=== PATIENT | female | born 1990 | race Caucasian/White ===

== ENCOUNTER 2024-02-15 15:42 | Outpatient (CLI) | payer MEDICAID, SELFPAY | END 2024-02-15 15:43 | disposition home or self-care (01) | PROVIDERS: PCP Family Medicine; Visit Provider Family Medicine | DX: Z01.84 Encounter for antibody response examination (principal) | CPT/HCPCS: 86735; 86762; 86765; 86787 ==

== ENCOUNTER 2024-03-15 13:30 | Outpatient (CLI) | payer MEDICAID, SELFPAY | END 2024-03-15 13:31 | disposition home or self-care (01) | LOC: NFLDREF 03-18 06:58 | PROVIDERS: PCP Family Medicine; Referring Provider Family Medicine; Visit Provider Family Medicine | DX: Z01.84 Encounter for antibody response examination (principal) | CPT/HCPCS: 86765 ==

== ENCOUNTER 2024-12-05 10:45 | Outpatient (RCR) | payer MEDICAID, SELFPAY ==
--- NOTE | 2024-09-27 15:38 | PT.OPEX ---
PT [place] [facility] Eval PT [facility] Outpatient Eval Start: 09/27/24 11:37 Freq: Status: Active Protocol: Document 09/27/24 11:38 MRS (Rec: 09/27/24 15:35 MRS No Response) E-signed By Tessa Moreno DPT Physical Therapy Outpatient Evaluation Insurance Information Recert Due Date 12/27/24 Insurance Name [employer] Medical Diagnosis Left Shoulder Pain Treating Diagnosis Pain in Shoulder Left M25.512 Stiffness of Shoulder M25.61 Weakness R53.1 Referring MD Alpesh Joy MD Subjective Preferred Name Neena Subjective Initial subjective: Pt presents with c/o left shoulder pain for past 2 months. She is also having right hip pain and will be seeking referral for PT for right hip. Pt first noticed pain after deep cleaning and scrubbing floor in June. Pain has stayed consistent but has gotten slightly better since seeing MD but still has pain and limited mobility. NILES: none Aggravating factors: reaching across the body or reaching back behind to scratch back. Lifting and reaching for items at work can be difficult. 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 -ER0:??T5/T1 -Abd:?full -FF:?full -Scap:?full -IR:?T3/T8 PROM: WNL for all motions Strength UE Strength (R/L):? -ER0: R: 5/5, L: 4+/5? -IR0: R: 5/5, L: 5/5? -ER90: R: 5/5, L: 5/5? -IR90: R: 5/5, L: 4+/5?(pain) -FF: R: 5/5, L: 5/5? -Abduction: R: 5/5, L: 4/5? Other/Pertinent Objective Cervical Screen:?negative Impingement:? -Smith-Brooks:?negative -Neers:?negative Labral:? -Duran?s:?negative Bicep Tendon:? -Speeds:?positive for pain Rotator Cuff:? -Drop Arm Test:?negative -Subscap Lift Off:?slight pain on the left UE Strength (R/L):? -ER0: R: 5/5, L: 4+/5? -IR90: R: 5/5, L: 4+/5?(pain) Abduction: R: 5/5, L: 4/5? Seated UE AROM (R/L):? -ER0:??T5/T1 -IR:?T3/T8 Functional Test Performed & Score Quick DASH: 22.72 Assessment Assessment/Impression Patient is a 34-year-old female presenting to physical therapy for evaluation and treatment of left shoulder pain. Patient has limited left shoulder AROM compared to right associated with pain as well as left shoulder weakness compared to right. Special tests suggest bicep and supraspinatus involvement without impingement Patient presents with impaired ROM, strength, and functional mobility as well as pain. These impairments are limiting the patient's ability to reach in multi plane directions and lift items. Patient appears motivated to participate in PT and presents with good prognosis to improve mobility, strength, proprioception and return to functional activities with skilled physical therapy intervention.? Educated patient on proper form and muscle activation throughout session in order to optimize muscle function and proper body mechanics.? Primary Functional Limitations pain, impaired AROM, weakness, impaired functional mobility Plan of Care Rehabilitation Potential Good Physical Therapy Goals STG's to be met in 2-4 weeks: 1.) Pt will report pain at 6/ 10 or less at worst 2.) Pt will demonstrate consistent HEP compliance to ensure progress in reaching established goals during course of care.? LTG's to be met in 6-8 weeks: 1.) Patient demonstrates 4+ to 5/5 strength for ability to lift and carry? 2.) Patient will demonstrate left shoulder AROM ER and IR WNL and symmetrical to right. 3.) Pt will exhibit 10-point improvement in QuickDASH Outcome measure to demonstrate functional improvement and progress towards goals.? 2.) Coordination/Communication With Referral Source Frequency/Duration 1-2x/wee for 6-8 weeks Patient Will Be Discharged From Therapy Completion of LTG(s),Skills Plateau,Independent w/HEP, Independently Progressing Evaluation Billing Untimed Code Treatment Minutes 30 PT Eval No Charge No Complexity Low Certification Information Initial Certification Date 09/27/24 Ending Certification Date 12/27/24 Provider Signature Required Communication Only-No Signature Required
== END 2024-12-05 14:44 | disposition home or self-care (01) ==
PROVIDERS: PCP Family Medicine; Visit Provider Family Medicine
DX: M25.512 Pain in left shoulder (principal); Z51.89 Encounter for other specified aftercare
CPT/HCPCS: 97110; 97140; 97161

== ENCOUNTER 2025-06-09 16:58 | Emergency (ER) | payer MEDICAID, SELFPAY ==
--- OUTSIDE RECORDS SUMMARY | 2025-06-09 17:00 | XMS_ITS | Clinical Summary ---
Author Organization [facility] Address [address] [place] [id number] Care Team Providers Care Freight Manager Name Role Phone Alpesh Joy MD Primary Care Provider + Social History Tobacco UseTypesPacks/DayYears UsedDateSmoking Tobacco: Never Assessed CommentsUnknownSex and Gender InformationValueDate RecordedSex Assigned at Not on fileLegal WjmLmrekk78/09/2022 4:05 PM CSTGender IdentityNot on fileSexual OrientationNot on file Plan of Treatment Health MaintenanceDue DateLast DoneCommentsTetanus kuqzlcn4701/21/2002Depression screening for age 12+2003HIV for age 15-65001/21/2006BMI (ht and wt on same day) for age 18+2009Hepatitis C screening for age 18-7901/21/2009Hepatitis B series for 19+ (1 of 3 - 19+ 3-dose series)2010Pap test for age 21-65 01/22/2012HPV series for age 9-45 (1 - 3-dose SCDM series)2018COVID-19 vaccine series (2024- season)/04/2021, 09/24/2020Influenza Vaccine (#1)2025Pneumococcal series for age 6-49Aged OutNo longer eligible based on patient's age to complete this topic Insurance Care Teams Team MemberRelationshipSpecialtyStart DateEnd Date Alpesh Joy MD [address] [place] [address] PCP - GeneralFamily Practice08/20/21
--- NOTE | 2025-06-09 17:07 | ED.GENADULT ---
HPI - General Adult General Date Seen: 06/09/25 Chief complaint: Laceration/Wound Stated complaint: left Pinkie Laceration Time Seen by Provider: 06/09/25 17:07 History of Present Illness HPI narrative: 35-year-old female who is up-to-date on tetanus shot (2022) presenting to the ER today with a wound on her left 5th finger (pinky finger). She accidentally cut her left 5th finger today. She was using a razor blade utility knife to cut some zip ties on her chicken coop when she accidentally slipped and cut herself on the ulnar side of her left 5th finger over the PIP joint and the lateral side of the middle phalanges. She did have dark red venous oozing was controlled by direct pressure. No numbness in her finger tip. No trouble bending or straightening her joints. No other injuries. She is generally healthy. No history of diabetes, cancer, immunosuppression. Related Data Previous Rx's ?Medication ?Instructions ?Recorded bupropion HCl 300 mg 24 hr tablet, 300 mg PO QAM #90 tabs 03/26/25 extended release sertraline 100 mg tablet 150 mg (1.5 x 100 mg) PO DAILY 03/26/25 #135 tabs Allergies Allergy/AdvReac Type Severity Reaction Status Date / Time amoxicillin Allergy Mild Rash Verified 03/26/25 09:50 PFSH [facility] Medical History Mild persistent asthma ?J45.30 - Mild persistent asthma, uncomplicated (ICD-10) Anxiety and depression ?F41.9 - Anxiety disorder, unspecified (ICD-10) ?F32.A - Depression, unspecified (ICD-10) Family History Mother DVT (deep venous thrombosis) Factor V deficiency Sister Breast cancer, Onset Age: 35 BRCA2 gene mutation positive Paternal Grandmother Ovarian cancer, Onset Age: 26 Breast cancer, Onset Age: 50 Paternal Grandfather Prostate cancer, Onset Age: 40 Maternal Grandfather Lung cancer Social History Narrative: Nonsmoker, [employer], non-binary, 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 [employer] What is your current living situation?: I presently have a place to live Problems where you live: no known problems In the past 12 months, utilities in danger of being shut off: no In past 12 months, lack of transportation kept you from medical appts, meetings, work, or getting things needed for daily living: no In the past 12 mos, have been you worried that your food would run out before you had money to buy more?: sometimes true In the past 12 mos, the food you bought just didn't last and you didn't have money to buy more?: sometimes true Smoking Status: Never smoker How often does anyone, including family, friends and others, physically hurt you: never How often does anyone, including family, friends and others, insult or talk down to you: never How often does anyone, including family, friends and others, threaten you with harm: never How often does anyone, including family, friends and others, scream or curse at you: never Health Related Social Needs: food insecurity (Z59.41) Exam Narrative: Exam Narrative: Constitutional: Appears well-developed and well-nourished. Polite HENT: Head: Atraumatic. No signs of injury. Nose: No nasal discharge. Mouth/Throat: Mucous membranes are moist. Pharynx is normal. Tonsils symmetric. Uvula midline. Airway patent. Eyes: Conjunctivae normal and EOM are normal. Pupils are equal, round, and reactive to light. Right eye exhibits no discharge. Left eye exhibits no discharge. No icterus. Neck: Normal range of motion. No stridor. Cardiovascular: Normal rate and regular rhythm. No murmur heard. No murmurs, rubs, or gallops. Brisk capillary refill no active bleeding from her finger laceration. Pulmonary/Chest: Effort normal. No stridor. No respiratory distress Musculoskeletal: On her left hand 5th digit (pinky finger) there is a 1.5 cm linear laceration on the ulnar border middle phalanges that does cross over the ulnar border of the PIP joint. Fortunately no evidence for any involvement of the flexor extensor tendons or the joint space. On the very distal tip of this laceration there is a small jagged V focal. No foreign body. No active bleeding. Intact distal digital nerve sensory function on the ulnar and radial sides of the finger. Normal range of motion. No edema. No tenderness. No deformity. Neurological: Alert. Normal strength. No cranial nerve deficit or sensory deficit. Coordination normal. GCS eye subscore is 4. GCS verbal subscore is 5. GCS motor subscore is 6. Skin: Skin is warm. No rash noted. Const: Vital Signs, click to edit/add: Vital Signs - 24 hr 06/09/25 17:10 Temperature 99.7 F H Pulse Rate [Pulse Oximeter] 81 Respiratory Rate 16 [facility] 138[facility]83 Pulse Oximetry 98 Oxygen Delivery Me thod Room Air Course Vital Signs Vital signs: Initial Vital Signs Temperature 99.7 F H 06/09/25 17:10 Temperature Source Temporal Artery Scan 06/09/25 17:10 Pulse Rate 81 06/09/25 17:10 Respiratory Rate 16 06/09/25 17:10 Blood Pressure 138/83 06/09/25 17:10 Blood Pressure Mean 101 06/09/25 17:10 Blood Pressure Position Sitting 06/09/25 17:10 Pulse Oximetry 98 06/09/25 17:10 Oxygen Delivery Method Room Air 06/09/25 17:10 Vital Signs Temperature 99.7 F H 06/09/25 17:10 Pulse Rate 81 06/09/25 17:10 Respiratory Rate 16 06/09/25 17:10 Blood Pressure 138/83 06/09/25 17:10 Pulse Oximetry 98 06/09/25 17:10 Oxygen Delivery Method Room Air 06/09/25 17:10 Temperature 99.7 F H 06/09/25 17:10 Pulse Rate 81 06/09/25 17:10 Respiratory Rate 16 06/09/25 17:10 Blood Pressure 138/83 06/09/25 17:10 Pulse Oximetry 98 06/09/25 17:10 Oxygen Delivery Method Room Air 06/09/25 17:10 Medical Decision Making MDM Narrative Medical decision making narrative: Findings and exam are consistent with an uncomplicated laceration which was repaired as noted above. There is no evidence at this time to suggest any associated fracture or foreign body. There is no evidence to suggest tendon or arterial injury and patient is neurologically in tact. The patient is to follow up for suture removal as instructed in 9-10 days. Indications to seek urgent reevaluation and signs of infection (including but not limited to increasing pain, redness, swelling, fevers, and drainage) were reviewed. Tetanus is up-to-date. This is a clean and non-contaminated wound in which prophylactic antibiotics are not indicated. An understanding of the discharge instructions and need for follow up were verbally confirmed. Discharge Plan Discharge Clinical Impression: Finger laceration Patient Disposition: Home, Self-Care Condition: Stable Instructions: Finger Laceration (ED) Additional Instructions: As we discussed please come back to the ER right away if you have any concerns, especially signs of infection such as redness, swelling, pus draining from your wound. Please try to keep the wound clean and dry and covered with antibiotic ointment and a dressing. Do not submerge underwater. It is okay to clean it gently with moistened gauze or clean towel once per day. After the wound is clean, gently dry and then apply a new at dose of antibiotic ointment and a new dressing. Please follow-up with your regular doctor or the urgent care in 9 -10 days (next Wednesday or Wednesday) for suture removal. Prescriptions: No Action bupropion HCl 300 mg tablet extended release 24 hr 300 mg PO QAM Qty: 90 3RF sertraline 100 mg tablet 150 mg PO DAILY Qty: 135 3RF Follow Up/Referrals: Alpesh Joy MD [Primary Care Provider, Family Practice] Stand Alone Forms: [facility] Info Instructions Procedures Laceration Left hand 5th digit laceration: Pre procedure diagnosis: Finger laceration Verification/time out: correct patient, correct site and correct procedure Site: hand Side (If applicable): left Size (cm): 1.5 Description: linear (With a tiny 1-2 mm v-shaped flap at the distal end) Depth: simple, single layer Local Anesthetic: lidocaine 1% (Digital block from a dorsal approach using a radial and ulnar injection. Good anesthesia was achieved.) Pre-repair: wound explored, irrigated extensively and deep structures intact Skin layer closed with: nylon Size (cm): 5-0 Number of sutures: 4 Technique: simple, interrupted
[2025-06-09 17:10] VITALS: BP 138/83; PULSE 81; RESP 16; TEMP 37.6; O2SAT 98; BMI 30.9
== END 2025-06-09 18:24 | disposition home or self-care (01) ==
PROVIDERS: Emergency Provider Emergency Medicine; PCP Family Medicine
DX: S61.217A Laceration without foreign body of left little finger without damage to nail, initial encounter (principal); W26.0XXA Contact with knife, initial encounter; Y93.89 Activity, other specified; Y92.72 Chicken coop as the place of occurrence of the external cause
CPT/HCPCS: 12001; 99282; 99283